=== PATIENT | male | born 1955 | race Two or more races ===

== ENCOUNTER 2021-06-07 19:03 | Emergency (ER) | payer OTHER ==
[~2021-06-07] VITALS: Ht 165.1 cm; Wt 86.2 kg
[2021-06-07] MEDS ORDERED: AMOCLA875 PO (20:26)
== END 2021-06-07 20:43 | disposition home or self-care (01) ==
LOC: ER 19:03
DX: S81.851A Open bite, right lower leg, initial encounter (principal); W54.0XXA Bitten by dog, initial encounter; Z23 Encounter for immunization
CPT/HCPCS: 90714; 99283; A9270